=== PATIENT | female | born 1970 | race American Indian/Alaskan Native ===

== ENCOUNTER 2022-02-02 17:35 | Observation (INO) | payer OTHER ==
[~2022-02-02] VITALS: Ht 160 cm; Wt 99.0 kg
[2022-02-02 19:53] VITALS: BP 132/68; PULSE 74; TEMP 98
--- NOTE | 2022-02-02 19:55 | NUR ---
PT READY FOR DISCHARGE. DC'D IV SITE FROM LEFT HAND, ANGIOCATH INTACT. REVIEWED DISCHARGE INSTRUCTIONS WITH PT AND SPOUSE. HAS PAIN MEDS AT HOME. DENIES PAIN AT THIS TIME.
--- NOTE | 2022-02-02 20:01 | NUR ---
DR CORONEL NOTIFIED OF PT ADMIT
--- NOTE | 2022-02-02 20:15 | NUR ---
DISCHARGED TO PRIVATE CAR VIA AMBULATORY STATUS. DISCHARGE INSTRUCTIONS SENT WITH PT WELL PERSONAL BELONGINGS.
--- NOTE | 2022-02-02 21:20 | NUR ---
IV ANTIBIOTIC GIVEN. IVF INITIATED TO [facility] SITE. PT TAKING CLEAR LIQUIDS, WILL BE NPO AFTER MIDNIGHT FOR [place]SHLEY IN AM. DENIES NEED FOR PAIN MEDS AT THIS TIME.
[2022-02-03 00:23] VITALS: BP 123/55; PULSE 68; TEMP 98.3
--- NOTE | 2022-02-03 03:20 | NUR ---
IV ANTIBIOTIC INFUSING WITHOUT PROBLEM. PT REPORTS HEADACHE. DENIES ABD PAIN. IS NPO.
[2022-02-03 04:11] VITALS: BP 130/79; PULSE 62; TEMP 97.7
[2022-02-03 06:22] LABS: BASO % 0.5 % (0.0-2.0); EOS # 0.1 K/mm3 (0.0-0.7); EOS % 1.4 % (0.0-4.0); GRAN # 3.4 K/mm3 (1.4-6.5); GRAN % 59.4 % (42.2-75.2); HEMATOCRIT 39.5 % (37.0-47.0); HEMOGLOBIN 12.7 g/dl (12.5-16.0); LYMPH # 1.7 K/mm3 (1.2-3.4); LYMPH % 30.5 % (20.0-51.0); MEAN CELL VOLUME 96 fl (80.0-100.0); MEAN CORPUSCULAR HEMOGLOBIN 31 pg (27-31); MEAN CORPUSCULAR HGB CONC 32 g/dl (33.0-37.0); MEAN PLATELET VOLUME 11.2 fl (7.4-10.4); MONO # 0.4 K/mm3 (0.1-0.6); MONO % 7.8 % (1.7-9.3); PLATELET COUNT 269 K/mm3 (130-400); RED BLOOD COUNT 4.13 M/mm3 (4.10-5.30); REDCELL DISTRIBUTION WIDTH-CV 13.3 % (11.5-14.5)
[2022-02-03 06:27] LABS: PROTHROMBIN TIME 11.8 SECONDS (9.7-12.8)
--- NOTE | 2022-02-03 06:30 | NUR ---
CONSENT SIGNED FOR SURGERY THIS AM.
[2022-02-03 06:34] LABS: ALBUMIN 3.6 gm/dL (3.5-5.0); BILIRUBIN,TOTAL 1.1 mg/dL (0.2-1.2); CREATININE, serum 0.87 mg/dL (0.57-1.11); TOTAL PROTEIN 6.9 gm/dL (6.2-8.1)
[2022-02-03 08:00] VITALS: BP 119/91; PULSE 67; TEMP 97.2
[2022-02-03] MEDS ORDERED: DILAUDID 2MG TAB2 MG PO (12:11)
[2022-02-03] MEDS ORDERED: MOTRIN 600600 MG/TAB PO (12:12)
[2022-02-03] MEDS ORDERED: AMOXICILLIN 8751 TAB PO (12:12)
--- NOTE | 2022-02-03 12:59 | NUR ---
Patient arrived back to room 347 from PACU at this time, alert/oriented, vital signs stable still reporting significant discomfort/ dilaudid given, present at bedside, will continue to monitor
--- NOTE | 2022-02-03 14:07 | NUR ---
SW informed patient was in surgery. SW will attempt intake another time. SW will continue to follow.
--- NOTE | 2022-02-03 15:00 | NUR ---
Discharge instructions reviewed with the patient and her , isntructed to follow up with as directed, instructed to take meds as prescribed, scripts sent to [facility] for her, instructed on low fat diet, isntructed on activity and bathing restrictions, removed IV site, patient able to take PO without issue, she has ambulated and used the bathroom/voided urine, pain controlled and VSS, I escorted them out the door
[2022-02-03 15:01] VITALS: BP 122/84; PULSE 62; TEMP 97.2
== END 2022-02-03 16:40 | disposition home or self-care (01) ==
LOC: SURG 17:35
PROVIDERS: ADMIT Surgery
DX: K81.1 Chronic cholecystitis (principal)
CPT/HCPCS: A9284; G0378; J0330; J0690; J1100; J1170; J1885; J2250; J2405; J2543; J2704; J3010; J7120